=== PATIENT | male | born 1950 | race Caucasian/White ===

== ENCOUNTER 2021-03-20 10:19 | Emergency (ER) | payer MEDICARE, BC ==
[~2021-03-20] VITALS: Ht 177.8 cm; Wt 69.1 kg
[2021-03-20] MEDS ORDERED: meclizine 12.5mg tablet PO ONE (13:35)
[2021-03-20] MEDS ORDERED: MECL-159 PO (13:43)
[2021-03-20 14:03] VITALS: BP 161/100
== END 2021-03-20 14:13 | disposition home or self-care (01) ==
LOC: ER 10:20
DX: H81.13 Benign paroxysmal vertigo, bilateral (principal); R11.10 Vomiting, unspecified; G89.29 Other chronic pain
CPT/HCPCS: 93005; 99283; J8597